=== PATIENT | male | born 1985 | race Caucasian/White ===

== ENCOUNTER 2017-01-21 10:42 | Inpatient (IN) ==
[2017-01-21] MEDS ORDERED: ZOFRAN ONE (10:44)
[2017-01-21] MEDS ORDERED: PROTONIX ONE ×2 (10:44→11:50)
[2017-01-21] MEDS ORDERED: ZOFRAN IV ONE (10:55)
[2017-01-21] MEDS ORDERED: PROTONIX IV ONE (10:56)
[2017-01-21] MEDS ORDERED: SODIUM CHLORIDE 0.9% INJ ONE (10:56)
[2017-01-21 11:09] LABS: INR 1.56 (0.86-1.15); PROTIME 19.9 Seconds (12.1-15.5); PTT PL 33.7 Seconds (22.6-43.9)
[2017-01-21 11:10] LABS: BASO% 0.5 % (0.0-0.8); EOS# 0.01 X1000 (0.0-0.7); EOS% 0.1 % (0.0-10.0); HEMATOCRIT 14.3 % (42.0-52.0); LYMPH% 22.9 % (20.5-51.1); MCH 23.2 PG (27-31); MCHC 28.7 g/dL (33-37); MCV 80.8 FL (81-99); MONO# 1.41 X1000 (0.11-0.59); MONO% 10.8 % (1.7-9.3); MPV 9.8 FL (7.4-10.4); NEUT% 65.5 % (42.2-75.2); RBC 1.77 XMIL (4.7-6.1)
[2017-01-21 11:11] LABS: HEMOGLOBIN 4.2 g/dL (14.0-18.0)
[2017-01-21 11:15] LABS: AGAP 13; ALBUMIN 3.1 g/dL (3.5-5.0); ALKALINE PHOSPHATASE 59 U/L (32-122); BUN 20 mg/dL (8-22); CALCIUM 8.3 mg/dL (8.8-10.2); CHLORIDE 105 mmol/L (98-107); COSMO 285; GOT 37 U/L (10-34); GPT 15 U/L (10-44); PLT 301 X1000 (130-400); POTASSIUM 4.2 mmol/L (3.5-5.1); SODIUM 139 mmol/L (136-145); TCO2 20 mmol/L (25-35); TOTAL PROTEIN 6.9 g/dL (6.3-8.3)
[2017-01-21] MEDS ORDERED: PROTONIX 80 MG in NS 80 ML IV ONE (11:25)
[2017-01-21] MEDS ORDERED: VITAMIN K SUBQ ONE (11:26)
[2017-01-21] MEDS ORDERED: LEVAQUIN PO ONE (11:32)
[2017-01-21] MEDS ORDERED: LEVAQUIN 500 MG/D5W 500 MG/100 ML IVPB IV ONE (11:40)
[2017-01-21] MEDS ORDERED: NS 100 ML ONE ×2 (11:50→11:53)
[2017-01-21 12:02] LABS: MANUAL DIFF NEEDED? NO
[2017-01-21] MEDS: PROTONIX 80 MG in NS 80 ML IV SCH ×2 (12:10→20:28)
--- NOTE | 2017-01-21 12:20 | EKG Report ---
Test Performed on : 01/21/2017 11:22:50 AM Test Reason : tachy/gi bleed Blood Pressure : / mmHG Vent. Rate : 125 BPM Atrial Rate : 125 BPM P-R Int : 000 ms QRS Dur : 082 ms QT Int : 330 ms P-R-T Axes : 000 066 -50 degrees QTc Int : 476 ms Accelerated Junctional rhythm. ST \T\ T wave abnormality, consider inferolateral ischemia Abnormal ECG No previous ECGs available Unconfirmed Result
[2017-01-21] MEDS ORDERED: PITRESSIN IV SCH (13:00)
[2017-01-21] MEDS ORDERED: NS 1,000 ML ONE (13:11)
[2017-01-21] MEDS ORDERED: NS 500 ML ONE (13:11)
[2017-01-21] MEDS ORDERED: NS 1,000 ML IV SCH (13:37)
[2017-01-21] MEDS ORDERED: NS 1,000 ML IV ONE (13:39)
[2017-01-21] MEDS ORDERED: NS 3,000 ML IV ONE (13:39)
[2017-01-21] MEDS ORDERED: QUELICIN (DOSE) ONE ×2 (13:56→13:57)
[2017-01-21] MEDS: NS 1,000 ML IV PRN ×2 (13:56→23:05)
[2017-01-21] MEDS ORDERED: XYLOCAINE-MPF 2% ONE (13:57)
[2017-01-21] MEDS ORDERED: DIPRIVAN 1% ONE (13:57)
[2017-01-21] MEDS ORDERED: PITRESSIN 40 UNIT in NS 100 ML IV SCH (14:00)
[2017-01-21] MEDS ORDERED: VERSED ONE (14:36)
[2017-01-21] MEDS ORDERED: FENTANYL ONE (14:36)
--- NOTE | 2017-01-21 15:04 | HISTORY AND PHYSICAL ---
PRIMARY CARE PHYSICIAN: None. CHIEF COMPLAINT: Vomiting blood. HISTORY OF PRESENTING ILLNESS: This is a 31-year-old male who presented to [facility] ER with complaints of vomiting bright red blood this morning. That began this morning. He states he has been having some black tarry stools for several weeks. He states that he has had a history of alcohol abuse that started at age 11 and that he drinks approximately a pint of vodka daily. He uses marijuana occasionally. Workup in the ER showed a white blood cell count of 13.04, his hemoglobin was 4.2, hematocrit 14.3. Platelets were 301. His bilirubin was 1.30, with an AST of 37, ALT of 15, alkaline phosphatase 59. He will be transferred to the intensive care unit at [facility] for further evaluation and treatment. We have started a Sandostatin drip, a Protonix drip. He is receiving 2 units of packed red blood cells now in the emergency room. We have consulted GI so he will be admitted for further evaluation and treatment. PAST MEDICAL HISTORY: Hypertension and stomach ulcers and depression. PAST SURGICAL HISTORY: None. FAMILY HISTORY: Noncontributory. SOCIAL HISTORY: He currently lives alone. Denies any tobacco use. States he drinks approximately a pint of vodka daily and uses marijuana occasionally. ALLERGIES: He has no known drug allergies. HOME MEDICATIONS: He takes Zoloft 100 mg p.o. daily, that will be held at this time as he is n.p.o. LABORATORY DATA: Showed a white blood cell count of 13.04, hemoglobin 4.2, hematocrit 14.3, platelets 301,000, PT and INR of 19.9 and 1.56, sodium of 139, potassium 4.2, chloride 105, CO2 20, BUN of 20, creatinine of 0.5, glucose of 189, total bilirubin 1.30, AST 37, ALT 15. REVIEW OF SYSTEMS: He denied any fever. He is positive for chills. Denied any blurred vision, dizziness, chest pain, coughing, shortness of breath. He is positive for some abdominal pain, nausea, vomiting of bright red blood. Denied any constipation. He has had some black tarry stools. Denied any burning or hurting with urination. PHYSICAL EXAMINATION: On arrival, he had a pulse of 119, respirations 20, blood pressure 119/73, saturating 100% on room air. GENERAL: This is a 31-year-old male who is lying in the bed, appears ill in color, is shaking visibly to his entire body. Came to the emergency room vomiting blood, bright red. HEENT: Normocephalic and atraumatic. Pupils are equal, round, and reactive to light. Extraocular movements are intact. Oropharynx and nares are clear. NECK: Supple. LUNGS: Clear to auscultation bilaterally with equal lung expansion and chest wall movement. HEART: With tachycardia. No murmurs, rubs, or gallops. ABDOMEN: Soft, nontender, nondistended. Bowel sounds are present x4 quadrants. EXTREMITIES: No clubbing, cyanosis, or edema. NEUROLOGICAL: The cranial nerves 2-12 appear grossly intact. ASSESSMENT: 1. Gastrointestinal bleed. 2. Anemia secondary to gastrointestinal bleed. 3. ETOH abuse. 4. Some mild leukocytosis. PLAN: He will be transferred from the ER at [facility] to the intensive care unit at [facility]. He will receive 2 units of packed red blood cells now while in the ER. He is on normal saline at 125 mL an hour. We will give him Levaquin 500 mg IV x 1 in the emergency room and then he will receive 500 mg IV daily. He will be placed on a Sandostatin drip, a Protonix drip. Stool for occult blood is pending. Again, we will consult GI. He will be placed on n.p.o. status, placed on telemetry. Further orders after being seen by GI. Dictated by ALEKSANDRA Garcia for Dimitri Rolon MD cc: ALEKSANDRA Garcia MD Babu Kantamneni, MD I have seen and examined this patient. I have provided face to face evaluation. I have reviewed her lab works and imagine studies. Patient presents with symptomatic anemia. Overt GI bleeding possibly from variceal bleeding. I agree with the above plan. Continue with PPI drip/ octreotide drip/ IV Vit K/ group and xmatch fro blood products ( PRBC and Plasma) Transfer to [facility] for GI scopes. TYREL ZAMBRANO
[2017-01-21] MEDS: SANDOSTATIN 500 MICROGM in D5W 100 ML IV SCH ×2 (15:20→20:28)
[2017-01-21] MEDS ORDERED: ZEMURON ONE (15:20)
[2017-01-21] MEDS ORDERED: ROBINUL ONE (15:21)
[2017-01-21] MEDS ORDERED: ZOFRAN IV PRN (15:26)
[2017-01-21] MEDS: APRESOLINE ONE ×3 (15:57→16:08)
[2017-01-21] MEDS: PHENERGAN ONE ×2 (16:13→16:14)
[2017-01-21 17:02] LABS: HEMATOCRIT 21.5 % (42.0-52.0); HEMOGLOBIN 6.7 g/dL (14.0-18.0)
[2017-01-21] MEDS: LEVAQUIN 500 MG/D5W 500 MG/100 ML IVPB IV SCH (17:30)
[2017-01-21] MEDS ORDERED: LEVAQUIN 500 MG/D5W 500 MG/100 ML IVPB ONE (17:34)
--- NOTE | 2017-01-21 22:40 | OPERATIVE NOTE ---
PROCEDURE DATE: 01/21/2017 PROCEDURE: Esophagogastroduodenoscopy and banding of esophageal varices. PREOPERATIVE DIAGNOSES: Gastrointestinal bleed. POSTOP DIAGNOSIS: Grade 3 esophageal varices with active variceal bleed. PROCEDURE DETAIL: After informed consent, endotracheal intubation and airway protection the scope introduced, patient has a active bleeding going on. There is lot of blood in esophagus which was aspirated, blood in the stomach which was aspirated. On retroflexed view right at the EG junction there is a varix that is actively bleeding. This was immediately banded. At this point esophagus is clean. There are 2 other bands were applied. At the end of the procedure there was no active bleeding. The clots were evacuated. The esophagus was also evacuated. The scope was withdrawn. The patient tolerated procedure well without any immediate complication. cc: Precious Jaimes MD
[2017-01-21 23:19] LABS: HEMATOCRIT 19.4 % (42.0-52.0); HEMOGLOBIN 6.2 g/dL (14.0-18.0)
[2017-01-21] MEDS ORDERED: NS 500 ML IV SCH (23:25)
[2017-01-22 05:25] LABS: MANUAL DIFF NEEDED? NO
[2017-01-22 05:40] LABS: HEMATOCRIT 20.9 % (42.0-52.0); HEMOGLOBIN 6.6 g/dL (14.0-18.0)
[2017-01-22 05:42] LABS: BASO% 0.4 % (0.0-0.8); EOS# 0.06 X1000 (0.0-0.7); EOS% 0.5 % (0.0-10.0); HEMATOCRIT 21.2 % (42.0-52.0); HEMOGLOBIN 6.6 g/dL (14.0-18.0); IMM GRAN# 0.03 X1000 (0.0-0.04); IMM GRAN% 0.2 % (0.0-0.5); LYMPH# 2.49 X1000 (1.2-3.4); LYMPH% 20.7 % (20.5-51.1); MCHC 31.1 g/dL (33-37); MCV 83.5 FL (81-99); MONO# 1.54 X1000 (0.11-0.59); MONO% 12.8 % (1.7-9.3); MPV 10.3 FL (7.4-10.4); NEUT% 65.4 % (42.2-75.2); PLT 129 X1000 (130-400); RBC 2.54 XMIL (4.7-6.1)
[2017-01-22 05:50] LABS: AGAP 8; BUN 14 mg/dL (8-22); CHLORIDE 110 mmol/L (98-107); COSMO 285; POTASSIUM 3.9 mmol/L (3.5-5.1); SODIUM 142 mmol/L (136-145); TCO2 24 mmol/L (25-35)
[2017-01-22 06:21] LABS: CALCIUM 6.8 mg/dL (8.8-10.2)
[2017-01-22] MEDS: NS 1,000 ML IV PRN (06:37)
[2017-01-22] MEDS: SANDOSTATIN 500 MICROGM in D5W 100 ML IV SCH ×2 (07:59→18:09)
[2017-01-22] MEDS: PROTONIX 80 MG in NS 80 ML IV SCH ×2 (07:59→18:09)
[2017-01-22] MEDS ORDERED: CALCIUM GLUCONATE IV PUSH ONE (08:50)
--- NOTE | 2017-01-22 09:11 | Diag Imaging Result Doc PS360 ---
EXAM: US ABDOMEN-COMPLETE HISTORY: gi bleed, hepatitis TECHNIQUE: Abdominal ultrasound COMMENT: The aorta and inferior vena cava are normal where there are visible but are largely obscured by gas as is the pancreas. There are some internal echoes in the gallbladder which weakly shadow. The gallbladder wall is slightly thickened in appearance. There is no sonographic Dan sign. There is no evidence of biliary dilatation the common bile duct measuring 4 mm. There is no demonstrable flow in the portal vein. The kidneys are without evidence of hydronephrosis or mass. There is what appears to be a right pleural effusion. The spleen is enlarged measuring over 17 mm in two planes. IMPRESSION: Splenomegaly. The possibility of cirrhosis cannot be excluded. Sluggish or absent flow in the portal vein. Right pleural effusion. Cholelithiasis. Electronically signed by Chandler Foss 01/22/2017 9:08 AM
[2017-01-22] MEDS: LEVAQUIN 500 MG/D5W 500 MG/100 ML IVPB IV SCH (12:14)
[2017-01-22] MEDS ORDERED: VITAMIN K SUBQ ONE (12:31)
[2017-01-22] MEDS ORDERED: ATIVAN IV PRN (12:45)
[2017-01-22] MEDS ORDERED: LASIX IV ONE (12:47)
[2017-01-22 12:55] LABS: HEMATOCRIT 23.1 % (42.0-52.0); HEMOGLOBIN 7.4 g/dL (14.0-18.0)
[2017-01-22] MEDS: POTASSIUM CHLORIDE 20 MEQ, MAGNESIUM SULFATE 2 GM, THIAMINE 100 MG, FOLIC ACID 1 MG, M.... IV SCH ×6 (13:50)
--- NOTE | 2017-01-22 15:09 | PROGRESS NOTE ---
DATE: 01/22/2017 SUBJECTIVE: The patient has no focal complaints except he really wants to the eat. OBJECTIVE: Vital signs: Blood pressure 137/70, heart rate of 89, respiratory rate of 15, temperature 98.8 degrees, 100% on 2 L. Cardiovascular: Regular rate and rhythm. Pulmonary: Bilateral breath sounds. Clear to auscultation. GI: Soft, nontender, nondistended. Bowel sounds are positive. LABORATORY DATA: White count is 12, hemoglobin and hematocrit is still 6 and 20.9. Despite he has had 3 units, BUN and creatinine 14 and 0.6. PROBLEM LIST: 1. Acute gastrointestinal bleed secondary to variceal bleed likely related to chronic liver disease, cirrhosis and alcoholic. Hemoglobin and hematocrit has not stabilized yet, but I think he had a profound bleed when he came in. 2. He had banding done yesterday urgently by Dr. Jaimes. He is still on Sandostatin and Protonix. We will maintain that for at least 72 hours and transfuse to keep him above 8 and 25. His most recent hemoglobin and hematocrit has been recently processed. 3. Chronic liver disease. I am suspicious he has cirrhosis. We will screen him for hepatitis and human immunodeficiency virus. He does have group home history exposure, multiple tattoos. 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 4. Chronic alcohol use. He is at high risk for withdrawal. So far he looks okay. I am a little concerned about starting high-dose benzodiazepines because he does have chronic liver disease, most likely cirrhosis. I will give him a banana bag, and we will follow closely. 5. Disposition pending his clinical status. We will continue to follow closely. cc: MD Precious Rivera MD
[2017-01-22 18:06] LABS: HEMATOCRIT 26.1 % (42.0-52.0); HEMOGLOBIN 8.3 g/dL (14.0-18.0)
[2017-01-22 18:17] LABS: INR 1.4
[2017-01-22 21:14] LABS: HEMATOCRIT 25.5 % (42.0-52.0); HEMOGLOBIN 8.2 g/dL (14.0-18.0)
[2017-01-23] MEDS: PROTONIX 80 MG in NS 80 ML IV SCH ×3 (01:45→13:35)
[2017-01-23] MEDS: SANDOSTATIN 500 MICROGM in D5W 100 ML IV SCH ×2 (04:24→12:53)
[2017-01-23 05:14] LABS: HEMATOCRIT 23.4 % (42.0-52.0); HEMOGLOBIN 7.4 g/dL (14.0-18.0); MCH 27.1 PG (27-31); MCHC 31.6 g/dL (33-37); MCV 85.7 FL (81-99); MPV 10.1 FL (7.4-10.4); RBC 2.73 XMIL (4.7-6.1)
[2017-01-23 05:26] LABS: AGAP 8; ALBUMIN 2.7 g/dL (3.5-5.0); ALKALINE PHOSPHATASE 44 U/L (32-122); BUN 10 mg/dL (8-22); CALCIUM 7.1 mg/dL (8.8-10.2); CHLORIDE 107 mmol/L (98-107); COSMO 278; GOT 31 U/L (10-34); GPT 11 U/L (10-44); POTASSIUM 3.5 mmol/L (3.5-5.1); SODIUM 139 mmol/L (136-145); TCO2 24 mmol/L (25-35); TOTAL BILIRUBIN 2.11 mg/dL (0.20-1.00); TOTAL PROTEIN 5.6 g/dL (6.3-8.3)
[2017-01-23 08:32] LABS: INR 1.31
[2017-01-23] MEDS: NS 1,000 ML IV PRN (08:38)
[2017-01-23] MEDS ORDERED: CALCIUM GLUCONATE 2 GM in NS 100 ML IV ONE (09:00)
[2017-01-23 09:13] LABS: HEMATOCRIT 25.5 % (42.0-52.0); HEMOGLOBIN 8.1 g/dL (14.0-18.0)
[2017-01-23 10:24] LABS: HEPATITIS PROFILE ACUTE SEE COMMENTS
--- NOTE | 2017-01-23 10:52 | PROGRESS NOTE ---
DATE: 01/23/2017 SUBJECTIVE: No signs of bleeding reported. Patient has been hemodynamically stable. No acute issues overnight. OBJECTIVE: Vital Signs: Temperature 98.2 degrees, heart rate 84, respiratory rate 21, blood pressure 123/64. O2 saturation 99% on room air. General Examination: This is a 31-year-old male, lying in bed, in no acute distress. HEENT: Head is normocephalic, atraumatic. Neck: Supple. No JVD noted. No lymphadenopathy. No carotid bruits. Cardiovascular: S1, S2 heard. No murmurs, gallops, or rubs. Regular rate and rhythm. Respiratory Examination: Clear bilaterally to auscultation. No work of breathing or using accessory muscles. Abdomen: Soft, nontender to palpation. A little bit distended. Bowel sounds present. No organomegaly. Extremities: No clubbing, cyanosis, or edema. Peripheral pulses present in both legs. Neurological Examination: Patient alert oriented x3. Moves 4 extremities. LABORATORY DATA: Last night hemoglobin and hematocrit shows hemoglobin 8.1, hematocrit 25.5, we will BMP that shows a calcium 7.1. Albumin A is 2.7 today. ASSESSMENT AND PLAN: 1. Acute gastrointestinal bleeding secondary to variceal bleeding, likely related to chronic liver disease, alcohol most probably. Hemoglobin and hematocrit has been checked and lastly and is 8.1, so at this point we are going to watch this patient closely. The patient has been seen by GI. They scoped him and they found Grade 3 esophageal viruses with active variceal bleed, so the banded those varices. Since then, the patient is doing okay. No hematemesis reported. Currently, he is on Sandostatin and Protonix. Apparently indication is to continue for a total of 72 hours and he has being started on that medication yesterday at 5 p.m. At this point, we are going to continue with the same management. 2. Chronic liver disease. Most probably this patient has cirrhosis. There is an order to check for a hepatitis panel and HIV. Those results are not back yet. another 4 check hepatitis panel and HIV. Those are not those results are not back yet. Most likely this is alcoholic cirrhosis. 3. Chronic alcohol abuse. Patient is a high risk for withdrawal, but considering his cirrhosis, I am afraid to start using benzodiazepines. We will continue to watch this patient. At this point, he has been started on banana bag and there are no signs of withdrawal at this time. We will continue with the same management. DISPOSITION: The patient is going to stay in the ICU one more day. The patient is hemodynamically stable. We will continue to monitor him closely. cc: MD Precious Mcallister MD
[2017-01-23] MEDS: LEVAQUIN 500 MG/D5W 500 MG/100 ML IVPB IV SCH (11:30)
[2017-01-23] MEDS: POTASSIUM CHLORIDE 20 MEQ, MAGNESIUM SULFATE 2 GM, THIAMINE 100 MG, FOLIC ACID 1 MG, M.... IV SCH ×6 (14:34)
[2017-01-23 16:00] LABS: HEMATOCRIT 23.8 % (42.0-52.0); HEMOGLOBIN 7.6 g/dL (14.0-18.0)
--- NOTE | 2017-01-23 18:09 | PROGRESS NOTE ---
DATE: 01/23/2017 SUBJECTIVE: The patient is resting in bed. He denies any more vomiting blood. He denies any passing blood in the stools. He denies any fevers or chills. OBJECTIVE: Vital Signs: T 99.4 degrees, pulse of 90, respiratory 20, blood pressure 141/77. Saturating 98% on room air. General Appearance: Moderately malnourished lying in bed, in no acute distress. HEENT: Pale conjunctivae. Mild icterus. Neck: Supple. Abdomen: Soft, nontender, nondistended. No guarding. Extremities: No cyanosis, clubbing. Neurologic: He was awake and alert. Answering questions. LABS: His hemoglobin is 7.6, hematocrit 23.8, white count 6.6, platelet count of 98,000. PT of 14, INR 1.3. Sodium 139, potassium 3.5, chloride 107, bicarb 24, anion of 8, BUN of 10, creatinine 0.5, glucose of 120, calcium is 7.1, total bilirubin is 2.1. AST 31, ALT 11, alkaline phosphatase 44, total protein 5.6, albumin of 2.7, ammonia 142. Hepatitis panel is nonreactive. IMPRESSION AND PLAN: 1. Variceal bleed. Status post banding on 01/21/[address] Jaimes. We will continue him on octreotide drip and Protonix drip for now for 72 hours and then we will switch him to Protonix b.i.d. We will advanced him to a full liquid diet. 2. Anemia. We are going to watch blood counts and transfuse to keep hematocrit more than 23%. 3. The patient is counseled to quit drinking completely. 4. The patient is at a high risk of alcohol withdrawal. So, he is on IV Ativan as needed. We will continue him on banana bag and multi vitamin. I discussed plan of care with the patient and family, and also with Dr. Werner. cc: MD Precious Shetty MD
[2017-01-23 21:24] LABS: HEMATOCRIT 26.6 % (42.0-52.0); HEMOGLOBIN 8.6 g/dL (14.0-18.0)
[2017-01-24] MEDS: PROTONIX 80 MG in NS 80 ML IV SCH ×2 (00:40→13:00)
[2017-01-24] MEDS: SANDOSTATIN 500 MICROGM in D5W 100 ML IV SCH (03:00)
[2017-01-24] MEDS: NS 1,000 ML IV PRN (04:10)
[2017-01-24 04:32] LABS: BASO% 0.6 % (0.0-0.8); EOS# 0.14 X1000 (0.0-0.7); EOS% 2.2 % (0.0-10.0); HEMATOCRIT 27.9 % (42.0-52.0); HEMOGLOBIN 9.1 g/dL (14.0-18.0); LYMPH% 27.8 % (20.5-51.1); MANUAL DIFF NEEDED? NO; MCH 28.3 PG (27-31); MCHC 32.6 g/dL (33-37); MCV 86.9 FL (81-99); MONO# 0.63 X1000 (0.11-0.59); MONO% 9.7 % (1.7-9.3); MPV 10.1 FL (7.4-10.4); NEUT% 59.7 % (42.2-75.2); PLT 104 X1000 (130-400); RBC 3.21 XMIL (4.7-6.1)
[2017-01-24 05:01] LABS: AGAP 9; ALBUMIN 3.1 g/dL (3.5-5.0); ALKALINE PHOSPHATASE 55 U/L (32-122); BUN 7 mg/dL (8-22); CALCIUM 7.7 mg/dL (8.8-10.2); CHLORIDE 107 mmol/L (98-107); COSMO 279; GOT 38 U/L (10-34); GPT 14 U/L (10-44); SODIUM 140 mmol/L (136-145); TCO2 24 mmol/L (25-35); TOTAL BILIRUBIN 2.85 mg/dL (0.20-1.00); TOTAL PROTEIN 5.7 g/dL (6.3-8.3)
[2017-01-24 10:37] LABS: HIV ANTIBODY SCREEN SEE COMMENTS
--- NOTE | 2017-01-24 10:47 | PROGRESS NOTE ---
DATE: 01/24/2017 SUBJECTIVE: This morning, Mr. Conley refers to be doing a lot better, and denies of any abdominal pain. No nausea. No vomiting. Has not had any more hematemesis or any melenic stool. OBJECTIVE: Vital signs: Blood pressure is 145/71, pulse of 81, respiration is 13, temperature is 100.1 degrees. General: Mr. Conley is a 31-year-old gentleman. He is in bed, not in any distress. HEENT: Mucosa is pink and moist. Anicteric. Acyanotic. Neck: Supple. Chest: Good air entry bilateral. There is a few bibasilar crepitations. Cardiovascular: Regular rate and rhythm. No murmurs, no rubs. No gallops. Abdomen: Slightly distended but nontender. Positive fluid shifting dullness. Did not appreciate any hepatosplenomegaly. Extremities: No pedal edema. Distal pulses are present. 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 No focal neurological deficit. Skin: Patient has multiple tattoos all over the skin, and there is some erythematous changes on the abdominal wall, which he attributes them to previous insect bites. LABORATORY DATA: WBC is 6.48, hemoglobin is 9.1. This is after 5 PRBC transfusions and 1 FFP transfusion. Patient's last transfusion was yesterday, 1 PRBC was transfused. Platelet count is 104,000 which is consistent with cirrhosis. Chemistry: Sodium is 140, potassium is 4.4, chloride is 107, bicarb is 24. Renal function is fine. Total bilirubin is 2.85. Hepatitis panel is negative. CURRENT MEDICATIONS: Levofloxacin, Ativan p.r.n., octreotide drip, pantoprazole drip, thiamine. Review of operative report by Dr. Jaimes on the 16, shows grade 3 esophageal varices with active variceal bleed. The patient is status post banding of the esophageal varices. ASSESSMENT: 1. Symptomatic anemia on presentation, secondary to gastrointestinal bleed. The patient presented with hemoglobin of 4.2. The EGD showed active variceal bleed. Patient is status post packed red blood cell transfusion. 2. Variceal bleeding. This is likely secondary to underlying cirrhosis. Patient is status post banding. Hemoglobin and hematocrit is now stable. 3. Cirrhosis of the liver due to alcohol abuse with long-term complications with ascites and esophageal varices and thrombocytopenia. The patient as a Model for end- stage liver disease score of 13. 4. Chronic alcohol abuse. Patient has been counseled. PLAN: So in general, Mr. Conley is medically stable. We are going to switch his PPI to p.o. b.i.d. We will discontinue the octreotide. We will continue with the current antibiotics and will advance his diet to GI soft and transfer the patient from the ICU to regular floor. cc: MD Precious Hale MD MTDD
[2017-01-24] MEDS: LEVAQUIN 500 MG/D5W 500 MG/100 ML IVPB IV SCH (13:16)
[2017-01-24] MEDS: POTASSIUM CHLORIDE 20 MEQ, MAGNESIUM SULFATE 2 GM, THIAMINE 100 MG, FOLIC ACID 1 MG, M.... IV SCH ×6 (14:22)
[2017-01-24] MEDS: PROTONIX PO SCH (22:21)
[2017-01-25 06:01] LABS: MANUAL DIFF NEEDED? NO
[2017-01-25 06:13] LABS: INR 1.26; PROTIME 13.4 Seconds (9.2-11.7)
[2017-01-25 06:28] LABS: AGAP 11; ALBUMIN 2.9 g/dL (3.5-5.0); ALKALINE PHOSPHATASE 55 U/L (32-122); BUN 7 mg/dL (8-22); CHLORIDE 107 mmol/L (98-107); COSMO 275; GOT 31 U/L (10-34); GPT 12 U/L (10-44); POTASSIUM 3.7 mmol/L (3.5-5.1); SODIUM 138 mmol/L (136-145); TCO2 20 mmol/L (25-35); TOTAL BILIRUBIN 2.08 mg/dL (0.20-1.00); TOTAL PROTEIN 5.6 g/dL (6.3-8.3)
[2017-01-25] MEDS: PROTONIX PO SCH (06:44)
[2017-01-25] MEDS: NS 1,000 ML IV PRN (06:44)
[2017-01-25 07:08] LABS: BASO% 0.4 % (0.0-0.8); EOS# 0.11 X1000 (0.0-0.7); EOS% 1.6 % (0.0-10.0); HEMATOCRIT 26.7 % (42.0-52.0); HEMOGLOBIN 8.5 g/dL (14.0-18.0); LYMPH# 1.67 X1000 (1.2-3.4); LYMPH% 24.6 % (20.5-51.1); MCH 27.9 PG (27-31); MCHC 31.8 g/dL (33-37); MCV 87.5 FL (81-99); MONO# 0.74 X1000 (0.11-0.59); MONO% 10.9 % (1.7-9.3); MPV 10.4 FL (7.4-10.4); NEUT% 62.5 % (42.2-75.2); PLT 93 X1000 (130-400); RBC 3.05 XMIL (4.7-6.1)
[2017-01-25 11:41] VITALS: BP 132/67
[2017-01-25] MEDS ORDERED: LIORESAL PO SCH (13:00)
[2017-01-25] MEDS ORDERED: INDERAL PO SCH (21:00)
[2017-01-26] MEDS ORDERED: LASIX PO SCH (09:00)
[2017-01-26] MEDS ORDERED: LEVAQUIN PO SCH (09:00)
[2017-01-26] MEDS ORDERED: THERA M PLUS PO SCH (09:00)
[2017-01-26] MEDS ORDERED: VITAMIN B-1 PO SCH (09:00)
[2017-01-26] MEDS ORDERED: ALDACTONE PO SCH (09:00)
--- NOTE | 2017-01-26 13:37 | DISCHARGE SUMMARY ---
ADMISSION DATE: 01/21/2017 DISCHARGE DATE: 01/25/2017 CONSULTATIONS: Dr. Jaimes with Gastroenterology. PERTINENT PROCEDURES: 1. EGD and banding of esophageal varices, performed by Dr. Jaimes on 01/21. 2. Abdominal ultrasound showed splenomegaly. Possibility of cirrhosis could not be excluded. Sluggish or absent flow in the portal vein. Right pleural effusion. Cholelithiasis. DISCHARGE DIAGNOSES: 1. Variceal bleed status post banding on 01/21/[address] Jaimes. Initially on octreotide drip and Protonix drip for greater than 72 hours and then was switched to Protonix b.i.d. He was advanced to a full liquid diet and then discharged on a GI soft diet. He will follow up with GI. 2. Symptomatic anemia on presentation secondary to gastrointestinal bleed. Presented with a hemoglobin and hematocrit of 4.2 and 14. An EGD showed active variceal bleed. He is status post 5 units of PRBCs and 1 unit of FFP. Hemoglobin and hematocrit are now stable. Hemodynamically stable. He is being discharged home with family. 3. Cirrhosis of the liver secondary to alcohol abuse with long-term complications with ascites and esophageal varices and thrombocytopenia. His model for end-stage liver disease is a score of 13. 4. Chronic alcohol abuse. Patient has been counseled to quit alcohol completely. HOSPITAL COURSE: Briefly, Mr. Conley is a 31-year-old gentleman who presented to [facility] ER with complaints of vomiting bright red blood that began on the morning of his admission. He had been having black tarry stools for several weeks. He states he has a history of alcohol abuse that started at the age of 11 and he drinks approximately a pint of vodka daily. He uses marijuana occasionally. Workup in the ED showed a white count of 13, a hemoglobin and hematocrit of 4 and 14. His platelets were 301. Bilirubin was 1.30, AST 37, ALT 15, alkaline phosphatase 59. He was transferred to the ICU at [facility] for further evaluation and treatment. He was initially started on an octreotide and Protonix drip and received 2 units of packed red blood cells en route. GI was made aware he was coming for admission. He remained NPO and started on IV fluids. He underwent an EGD with banding of esophageal varices by Dr. Jaimes. Right at the EG junction was where they active bleeding was; that was banded. They also applied additional 2 other bands. There was no additional active bleeding. The clots were evacuated. The esophagus was also evacuated. He remained on an octreotide and Protonix drip for 72 hours. He received a total of 5 PRBCs and a unit of FFP. Given his chronic alcohol use, he was at high risk for withdrawal. He was also watched closely for any DTs or withdrawal symptoms. He was initiated on banana bags daily. He was able to be started on a full liquid diet. He tolerated that well. He was able to move out of the ICU to a regular floor. He has denied any abdominal pain, nausea, vomiting. No more hematemesis or melenic stools. Today he was started on a mechanical soft diet and switched his PPI to p.o. He is being discharged home today with family. Hemoglobin and hematocrit at the time of his discharge was 8.5 and 26. DISCHARGE DIET: GI soft. DISCHARGE MEDICATIONS: As per Dr. Rolon. 1. Baclofen 10 mg p.o. b.i.d. 2. Lasix 20 mg p.o. daily. 3. Levaquin 500 mg p.o. daily. 4. Thera-M Plus 1 each p.o. daily. 5. Protonix 40 mg p.o. b.i.d. 6. Inderal 10 mg p.o. b.i.d. 7. Zoloft 100 mg p.o. daily. 8. Aldactone 50 mg p.o. daily. 9. Vitamin D 100 mg p.o. daily. FOLLOW UP: Mr. Conley is being discharged back home with family. He is to follow up with Dr. Humphries. Take all of his medications as prescribed. He has been educated ad nauseam about abstaining from alcohol. He can return to the ED for any worsening of symptoms. Dictated by ALEKSANDRA Cervantes for Dimitri Rolon MD cc: MD Precious Hale MD Time spent for discharge [address] [facility]
--- NOTE | 2017-02-02 09:15 | PROVIDER DOCUMENTATION ---
This chart was entered by Lidia Darden Scribe, acting as scribe for Alexander Joiner MD. HPI-Abdominal Pain/GI Problem - General Chief Complaint: GI Bleed Stated Complaint: GI Bleed Time Seen by Provider: 01/21/17 10:42 Source: patient Allergies/Adverse Reactions: Patient Allergies Allergy/AdvReac Type Severity Reaction Status Date / Time No Known Allergies Allergy Verified 01/21/17 10:51 Home Medications: Home Medication List Medication Instructions Recorded Confirmed Last Taken Type Sertraline HCl [Zoloft] 100 mg PO DAILY 06/13/14 01/21/17 01/20/17 History - History of Present Illness-ABD Nature of Presenting Problems: Pt is a 31 y/o M presents to the ED with vomiting blood. Pt states started vomiting blood this am. Pt states prior hx of vomiting blood. Pt states having black stools. Pt denies hx of liver disease. Pt denies use of blood thinners. Pt states hx of alcohol abuse starting at 11 years of age. Abdominal Pain Onset Location: reports: generalized abdomen Pain Radiation: reports: no radiation Quality of Pain: reports: aching Severity in ED: reports: moderate Onset/Duration: reports: this morning Timing: reports: still present Activities at Onset: reports: light activity Modifying Factors: improves with: nothing Associated Symptoms: reports: vomiting (blood). denies: anxiety, arm pain, back /neck pain, chest pain, constipation, cough, diaphoresis, diarrhea, dizziness, EENT symptoms, fatigue, fever/chills, genitourinary problems, headaches, heartburn, joint pain, loss of appetite, malaise, muscle aches, sinus congestion /drainage, nausea, rash, seizure, shortness of breath, sensory/motor loss, pain with inspiration, swelling/mass in abdomen, syncope, weakness, trouble walking Last BM: unsure Dark Stools Present?: reports: black Rectal Bleeding: reports: none Rectal Pain: reports: none Emesis Description: reports: red blood Bruising or Bleeding Gums?: No Similar Symptoms Previously?: Yes Recently seen or treated by another doctor?: No Review of Systems - Adult - REVIEW OF SYSTEMS - ADULT Constitutional: reports: no symptoms reported Eyes: reports: no symptoms reported Ears, Nose, Mouth & Throat: reports: no symptoms reported Cardiovascular: reports: no symptoms reported Respiratory: reports: no symptoms reported Gastrointestinal: reports: abdominal pain, nausea, vomiting (blood). denies: diarrhea Genitourinary: reports: no symptoms reported Musculoskeletal: reports: no symptoms reported Integumentary: reports: no symptoms reported Neurological: reports: no symptoms reported Psychiatric: reports: no symptoms reported Endocrine: reports: no symptoms reported Hematologic/Lymphatic: reports: no symptoms reported Allergic/Immunologic: reports: no symptoms reported All Other Systems: Reviewed and Negative Past History - Adult - PAST MEDICAL HISTORY-ADULT Review of Records: reports: Nursing Assessment Review, Medications Reviewed, Social history reviewed & non-contributory. Major Childhood Illnesses: reports: denies history Cardiovascular: reports: HTN Respiratory: reports: denies history Gastrointestinal: reports: denies history Obstetrical/Gynecological: reports: denies history Genitourinary: reports: denies history Musculoskeletal: reports: denies history Neurological: reports: denies history Psychiatric: reports: depression Endocrine/Immune: reports: denies history Other Conditions: reports: denies history - PRIOR SURGERIES/PROCEDURES Surgical/Procedure History: reports: reviewed, not pertinent - IMMUNIZATION STATUS Childhood Immunizations: See Nurse Assessment Flu Vaccine: See Nurse Assessment - FAMILY HISTORY Family History: reviewed, not pertinent - SOCIAL HISTORY Smoking: cigarettes, less than 1 pack/day Provider spent 3-5 mins advising pt. on dangers of tobacco.: Discussed manners to quit use, and f/u contacts for add'l counseling. Substance Use: alcohol, marijuana Alcohol Use Frequency: occasionally Number of drinks per typical drinking period:: 2 drinks Living Situation: family Physical Exam-General - PHYSICAL EXAM-ADULT Initial Vital Signs Reviewed: Yes - CONSTITUTIONAL General Appearance: alert, mild distress, other (ill in appearance). negative: appears well, lethargic, slow to respond - EYES Eyes: PERRL/EOMI, pink conjunctivae. negative: pale conjunctivae, sunken eyes - HEAD, EARS, NOSE, MOUTH & THROAT HENMT: normal ENT inspection. negative: angioedema, hearing deficit - NECK Neck: normal inspection. negative: lymphadenopathy, tender lateral - RESPIRATORY Respiratory: chest non-tender, lungs clear, normal breath sounds. negative: crackles, wheezing - CARDIOVASCULAR Cardiovascular: normal peripheral pulses, regular rate, rhythm. negative: tachycardia, systolic murmur - GASTROINTESTINAL (ABDOMEN) Abdominal Exam: normal bowel sounds, soft, tenderness (generalized). negative: distended, rebound, hernia - LYMPHATIC Lymphatic: no adenopathy. negative: enlargement, streaking - MUSCULOSKELETAL Back Exam: normal inspection. negative: ecchymosis, swelling Extremity: normal inspection. negative: deformity, erythema, swelling - SKIN Integumentary: normal turgor, warm/dry, pallor. negative: diaphoresis, ecchymosis, swelling - NEUROLOGIC Neurologic: grossly normal. negative: aphasia, facial droop - PSYCHIATRIC Psych/Mental Status: oriented x 3, anxious. negative: paranoid, tearful Progress - PLAN OF CARE/RESULTS Progress/Plan/Lab Results: 1133 - Dr. Jaimes - Dr. Joiner consults with Dr. Jaimes about Pt. 1139 - Dr. Segura - Dr. Joiner consulted with Dr. Segura about Pt being transferred to [facility]. Result Diagrams: 01/21/17 10:45 01/21/17 10:45 - EKG 1 Time of EKG reading by physician:: 11:22 EKG Read and Signed by:: Alexander Joiner EKG Interpretation (*Must complete 3 of following elements*): Abnormal Rate: 125 Rhythm: accelerated junctional rhythm Comments: ST & T wave abnormality, consider inferolateral ischemia - CONSULTS/PCP/HOSPITALIST Notification #1 *Consult/PCP/Hospitalist*: Dr. Jaimes Time Discussed: 10:51 Reason/Comments: Dr. Joiner consulted with Dr. Jaimes about Pt Consult Disposition: other (keep Pt NPO and transfer across [facility].) #2 Consult: ALEKSANDRA Smiley for Hospitalist Time Discussed: 10:58 Reason/Comments: Dr. Joiner consulted with ALEKSANDRA Smiley, about Pt Consult Disposition: Admit #3 Consult: Dr. Rolon Time Discussed: 11:13 Reason/Comments: Dr. Joiner consulted with Dr. Rolon about Pt Consult Disposition: Will see in ED Departure - Departure Date of Disposition Decision: 01/21/17 Time of Disposition Decision: 10:49 (Pt will be transferred to [facility] for GI ) DIAGNOSIS: GI bleed Disposition: OTHER 70 Certified Medical Emergency: Emergent Condition: Critical Referrals and Follow-Ups: None,PCP [Primary Care Provider] - - Critical Care Note This patient required my direct & personal management of CC.: Yes Total Time (mins): 45 Critical Care Statement: This patient required my direct personal management to treat or rule out processes, the absence of which, could potentiallly result in sudden, clinically significant life or limb threatening deterioration. Attestation - Physician/ [place]IR[place]IE Attestation Patient care was provided by Advanced Practice Provider:: No The physician spent face to face time with patient:: Yes Advanced Practice Provider documentation review:: Supervising physician onsite and consulted in the evaluation and care of this patient. The physician did have a face to face encounter with the patient. This chart was documented by the indicated scribe, (Lidia Darden Scribe) and accurately reflects the services I performed and decisions made by me, Alexander Joiner MD, as attested by the provider's signature.
== END 2017-01-25 13:25 | disposition home or self-care (01) ==
LOC: P.ED 10:42 → EDIPHOLD 12:44 → SUATTDRO 12:44 → ICU 17:08 → 4N 01-24 18:29
PROVIDERS: ADMIT Internal Medicine Gastroenterology; ATTEND Internal Medicine